=== PATIENT | female | born 2000 | race African-American/Black ===

== ENCOUNTER 2021-06-22 15:55 | Emergency (ER) | payer OTHER | END 2021-06-22 16:58 | disposition left against medical advice (07) | LOC: ER 15:55 | DX: Z53.21 Procedure and treatment not carried out due to patient leaving prior to being seen by health care provider (principal) ==

== ENCOUNTER 2021-06-23 12:53 | Emergency (ER) | payer MEDICAID, OTHER ==
[~2021-06-23] VITALS: Ht 160 cm; Wt 76.0 kg
[2021-06-23 13:30] VITALS: BP 118/81
== END 2021-06-23 13:30 | disposition home or self-care (01) ==
LOC: ER 12:53
DX: U07.1 COVID-19 (principal)
CPT/HCPCS: 99283; C9803; U0003; U0005

== ENCOUNTER 2022-06-01 15:56 | Emergency (ER) | payer MEDICAID, OTHER ==
[~2022-06-01] VITALS: Ht 162.6 cm; Wt 59.0 kg
[2022-06-01] MEDS ORDERED: KETOROLAC 60MG/2ML VIAL IM ONE (18:45)
[2022-06-01] MEDS ORDERED: DEXAMETHASONE 10 MG/ML VIAL IM ONE (18:45)
[2022-06-01] MEDS ORDERED: PENICILLIN G BENZATHINE 1,200,000 UNITS/2ML SYR IM ONE (19:00)
[2022-06-01 19:15] VITALS: BP 123/55
== END 2022-06-01 19:19 | disposition home or self-care (01) ==
LOC: ER 15:56
DX: J02.9 Acute pharyngitis, unspecified (principal); R50.9 Fever, unspecified; Z20.822 Contact with and (suspected) exposure to COVID-19
CPT/HCPCS: 81025; 87070; 87426; 87430; 96372; 99284; C9803; J0561; J1100; J1885